=== PATIENT | female | born 1965 | race Caucasian/White ===

== ENCOUNTER 2020-01-24 20:12 | Emergency (ER) | payer OTHER, SELFPAY ==
[2020-01-24 20:13] VITALS: BP 196/130; PULSE 88; RESP 16; TEMP 36.2; O2SAT 95; BMI 39.4
[2020-01-24 20:16] VITALS: BP 192/109; PULSE 87; RESP 16; TEMP 36.2; O2SAT 95
--- NOTE | 2020-01-24 21:35 | CT_ITS ---
STUDY: CT ABDOMEN AND PELVIS WITHOUT CONTRAST REASON FOR EXAM: Female, 54 years old. Left flank pain, nausea, urinary burning RADIATION DOSAGE (If Supplied By Facility): CTDIvol = ( 20.84 ) mGy, DLP = ( 1072.41 ) mGycm TECHNIQUE: Transaxial images were obtained from the dome of the diaphragm to the symphysis pubis without oral contrast, and without intravenous contrast. Sagittal and coronal images were reconstructed. Individualized dose optimization techniques were used for this CT. COMPARISON: None. FINDINGS: The visualized lung bases are unremarkable. The visualized portions of the heart are within normal limits. Liver is severely fatty infiltrated.. Gallbladder is removed. There is no biliary dilation.. Normal spleen. Normal pancreas. Normal bilateral adrenal glands. Normal right kidney. Normal left kidney. The left ureter is minimally dilated compared to the right. There are no urinary calculi. Normal visualized stomach. Normal small intestine. Normal colon. The appendix is visualized and appears normal. Normal abdominal aorta. Normal inferior vena cava. Normal retroperitoneum. Normal urinary bladder. Normal abdominal wall. Normal osseous structures. CT/Abdomen/Pelvis without Cont IMPRESSION: 1. Mildly asymmetric and atypical appearing left ureter. Differential possibilities are recently passed urinary calculus versus ureteritis due to UTI. 2. Severe hepatic steatosis. Electronically Signed: Rogers Judge, at 22:11 EDT Tel , Service support ,
[2020-01-24 21:36] LABS: Mucous, Urine 0 SEEN /hpf (<or=2+); Squamous Epithelial Cells - UA 0 SEEN /hpf (5-10); White Blood Cells 0 SEEN /hpf (0-5)
[2020-01-24 21:47] LABS: Glucose, Dipstick Normal (Normal); Ketone-Dipstick 5 mg/dl (Negative); Leukocyte Esterase-Dipstick Negative /ul (Negative); Nitrite-Dipstick Positive (Negative); Occult Blood-Urine 50 /ul (Negative); Protein-Dipstick 30 mg/dl (Negative); Specific Gravity, Urine 1.015 (1.002-1.030); Urine Clarity Sl. Cloudy (Clear); Urine Urobilinogen 8 mg/dl (Normal)
[2020-01-24 21:49] LABS: Color, Urine SEE COMMENT BELOW (Yellow); Urine Bilirubin Dipstick 6 mg/dL (Negative)
[2020-01-24] MEDS: Ketorolac 30 MG/ML Syringe IV (21:50)
[2020-01-24 21:58] LABS: Absolute Lymphocyte Count 1.64 X10^3/uL (0.83-4.51); Absolute Neutrophil Count 7.9 X10^3/uL (2.0-7.7); Basophil# 0.06 X10^3/uL; Basophil% 0.6 % (0-1); Eosinophil# 0.03 X10^3/uL; Eosinophils% 0.3 % (0-5); Hematocrit 46.2 % (37-47); Hemoglobin 15.7 g/dL (12.0-15.0); Lymphocyte # 1.64 X10^3/ul (4.0); Lymphocyte % 16.1 % (19-41); Mean Corpuscular Hgb 31.4 pg (27.0-32.0); Mean Corpuscular Volume 92.4 fL (81-99); Monocyte# 0.47 X10^3/uL; Monocyte% 4.6 % (0-10); NRBC Flagged by Analyzer 0 % (0-5); Neutrophil # 7.93 X10^3/uL (2.7-7.7); Neutrophil % 77.8 % (47-70); Platelet Count 242 K/mm3 (150-450); RBC Distribution Width CV 12.3 % (11.6-14.6); RBC Distribution Width SD 41.6 fl (35.1-43.9); White Blood Count 10.2 K/mm3 (4.4-11.0)
[2020-01-24] MEDS: 0.9% Normal Saline 1,000 ML 250 ML IV (22:00)
[2020-01-24 22:10] LABS: Anion Gap 7 (5-15); BUN 24 mg/dL (7-18); BUN/Creat Ratio 18.2 RATIO (10-20); Calcium,Total 9.7 mg/dL (8.5-10.1); Chloride 105 mmol/L (98-107); Creatinine, Serum 1.32 mg/dL (0.55-1.02); EST Glomerular Filtration Rate 45 mL/min (>60); Est Glom Filt Rate - Afr Amer 54 mL/min (>60); Estimated Creatinine Clearance 41.24 ml/min; Glucose 157 mg/dL (74-106); Potassium 4.1 mmol/L (3.5-5.1); Sodium Level 137 mmol/L (136-145)
[2020-01-24 22:14] LABS: Bacteria 1+ /hpf (None Seen); Red Blood Cells-Urine 0-5 SEEN /hpf (0-5)
[2020-01-24 22:40] VITALS: BP 135/74; PULSE 76; RESP 16; O2SAT 96
--- NOTE | 2020-01-24 22:51 | ED.VIS.GEN ---
History of Present Illness Chief Complaint: Complaint Informant: Patient Narrative: Patient went to primary care today as she was experiencing urinary frequency. She was given Bactrim and Azo. She went home developed severe pain left flank that seem to wrap towards the left anterior lower quadrant. She had nausea about 20 minutes after taking the Bactrim. She states she could not find a position of comfort. She is never experienced this before. She states that over the past 30 minutes or so she is starting to significantly improve. Past Medical History - Allergies and Home Meds Allergies/Adverse Reactions: Allergies No Known Allergies Allergy (Verified 01/24/20 20:16) Primary Care Physician: Nilton Chaidez MD [Primary Care Provider] - As Needed Prior records reviewed: Yes Surgical History: noncontributory Lives: Spouse/ Significant Other Smoking Status: Never smoker Drugs: None Review of Systems General: Denies: Chills, Fever, Sweats Eyes: Denies: Visual changes - bilaterally, Diplopia ENT: Denies: Rhinorrhea, Sore throat Cardiovascular: Denies: Chest pain, Palpitations Respiratory: Denies: Dyspnea, Cough, Dyspnea on exertion Gastrointestinal: Reports: Abdominal pain, Nausea, Vomiting. Denies: Diarrhea, Melena, Hematochezia Genitourinary: Reports: Frequency. Denies: Dysuria, Hematuria Musculoskeletal: Reports: Back pain. Denies: Extremity Pain Skin: Denies: Rash, Wounds Neurological: Denies: Headache, Weakness, Numbness Physical Exam Vital Signs/Narrative: Vital Signs Temp Pulse Resp BP Pulse Ox 01/24/20 22:40 76 16 135/74 H 96 01/24/20 20:16 97.1 F L 87 16 192/109 H 95 01/24/20 20:13 97.1 F L 88 16 196/130 H 95 Inital Vital Signs reviewed: Yes General: Well nourished, Well developed, No Acute Distress Head: Normocephalic, Atraumatic Eyes: Perrl, EOMI ENT: Moist mucous membranes, No rhinorrhea Neck: Supple, Nontender Cardiovascular: Regular rate, Regular rhythm, No murmurs Respiratory: No distress, CTA bilaterally, Chest nontender Abdomen: Soft, Nontender, Nondistended, Normal bowel sounds Back: Nontender, Normal Inspection Extremities: Nontender, No edema Skin: Normal color, No rash Neurological: Alert, Oriented x3, Cranial nerves II-XII grossly intact, Normal Strength, Normal Sensation Psychological: Normal affect, Normal Mood Diagnostic/Tx/Re-eval Clinical Impression(s) from Imaging Studies Abdomen/Pelvis CT 01/24/20 21:35 IMPRESSION: 1. Mildly asymmetric and atypical appearing left ureter. Differential possibilities are recently passed urinary calculus versus ureteritis due to UTI. 2. Severe hepatic steatosis. Electronically Signed: Rogers Judge, at 22:11 EDT Tel , Service support , Laboratory Last Values WBC 10.2 K/mm3 (4.4-11.0) 01/24/20 21:50 RBC 5.00 M/mm3 (4.2-5.4) 01/24/20 21:50 Hgb 15.7 g/dL (12.0-15.0) H 01/24/20 21:50 Hct 46.2 % (37-47) 01/24/20 21:50 MCV 92.4 fL (81-99) 01/24/20 21:50 MCH 31.4 pg (27.0-32.0) 01/24/20 21:50 MCHC 34.0 g/dL (32-36) 01/24/20 21:50 RDW Std Deviation 41.6 fl (35.1-43.9) 01/24/20 21:50 RDW Coeff of Vera 12.3 % (11.6-14.6) 01/24/20 21:50 Plt Count 242 K/mm3 (150-450) 01/24/20 21:50 MPV 9.0 fl (6.2-12.0) 01/24/20 21:50 Immature Gran % (Auto) 0.600 % (0.0-0.9) 01/24/20 21:50 Neut % (Auto) 77.8 % (47-70) H 01/24/20 21:50 Lymph % (Auto) 16.1 % (19-41) L 01/24/20 21:50 Armstrong % (Auto) 4.6 % (0-10) 01/24/20 21:50 Eos % (Auto) 0.3 % (0-5) 01/24/20 21:50 Baso % (Auto) 0.6 % (0-1) 01/24/20 21:50 Absolute Neuts (auto) 7.9 X10^3/uL (2.0-7.7) H 01/24/20 21:50 Absolute Lymphs (auto) 1.64 X10^3/uL (0.83-4.51) 01/24/20 21:50 Nucleated RBC % 0 % (0-5) 01/24/20 21:50 Sodium 137 mmol/L (136-145) 01/24/20 21:50 Potassium 4.1 mmol/L (3.5-5.1) 01/24/20 21:50 Chloride 105 mmol/L (98-107) 01/24/20 21:50 Carbon Dioxide 25.0 mmol/L (21.0-32.0) 01/24/20 21:50 Anion Gap 7 (5-15) 01/24/20 21:50 BUN 24 mg/dL (7-18) H 01/24/20 21:50 Creatinine 1.32 mg/dL (0.55-1.02) H 01/24/20 21:50 Estim Creat Clear Calc 41.24 ml/min 01/24/20 21:50 Est GFR (MDRD) Af Amer 54 mL/min (>60) L 01/24/20 21:50 Est GFR (MDRD) Non-Af 45 mL/min (>60) L 01/24/20 21:50 BUN/Creatinine Ratio 18.2 RATIO (-20) 01/24/20 21:50 Glucose 157 mg/dL (74-106) H 01/24/20 21:50 Calcium 9.7 mg/dL (8.5-10.1) 01/24/20 21:50 Urine Color SEE COMMENT BELOW (Yellow) 01/24/20 21:30 Urine Clarity Sl. Cloudy (Clear) 01/24/20 21:30 Urine pH 6.0 (5.0 - 8.0) 01/24/20 21:30 Ur Specific [place] 1.015 (1.002-1.030) 01/24/20 21:30 Urine Protein 30 mg/dl (Negative) H 01/24/20 21:30 Urine Glucose (UA) Normal mg/dl (Normal) 01/24/20 21:30 Urine Ketones 5 mg/dl (Negative) H 01/24/20 21:30 Urine Occult Blood 50 /ul (Negative) H 01/24/20 21:30 Urine Nitrite Positive (Negative) H 01/24/20 21:30 Urine Bilirubin 6 mg/dL (Negative) H 01/24/20 21:30 Urine Urobilinogen 8 mg/dl (Normal) H 01/24/20 21:30 Ur Leukocyte Esterase Negative /ul (Negative) 01/24/20 21:30 Urine RBC 0-5 SEEN /hpf (0-5) 01/24/20 21:30 Urine WBC 0 SEEN /hpf (0-5) 01/24/20 21:30 Ur Squamous Epith Cells 0 SEEN /hpf (5-10) 01/24/20 21:30 Urine Bacteria 1+ /hpf (None Seen) 01/24/20 21:30 Urine Mucus 0 SEEN /hpf (<or=2+) 01/24/20 21:30 - Medical Decision Making Urinalysis demonstrates 1+ bacteria but no significant white or red cells. CT shows a prominent left kidney and dilated ureter down to the level of the bladder. But no obvious stone was seen. Clinically the patient presents more like ureterolithiasis that has been passed. She has been resting comfortably after dose of Toradol. Plan will be for me to write her some [place]. If this is the past on 06 suspect that she will get significantly better. As far as the 1+ bacteria no change her to Keflex as she is hesitant to take the Bactrim given the vomiting. Return if worsening or concerns. ED Disposition - Plan for ED Patient: Disposition: Home or Assisted Living Diagnosis: Left flank pain, Ureterolithiasis Instructions: ED RENAL STONE Passed Prescriptions: Cephalexin [Keflex] 500 mg PO Q6 #20 cap Prescription Printed Hydrocodone Bitart/Apap 5-325 [B[place] 5MG-325MG] 1 tab PO Q6H PRN PRN 3 Days #12 tab PRN Reason: Pain Prescription Printed Ondansetron [Zofran Odt] 4 mg PO Q6H PRN PRN #14 tab PRN Reason: Nausea Prescription Printed Referrals: Nilton Chaidez MD [Primary Care Provider] - As Needed
[2020-01-24] MEDS: Cephalexin 250 MG Capsule 500 MG PO (22:57)
== END 2020-01-24 23:03 | disposition home or self-care (01) ==
PROVIDERS: Emergency Provider Emergency Medicine; PCP Family Medicine
DX: N20.1 Calculus of ureter (principal)
CPT/HCPCS: 74176; 80048; 81001; 85025; 96361; 96374; 99282; J7030; A4216

== ENCOUNTER → 2021-02-10 15:56 | Outpatient (CLI) | payer OTHER, SELFPAY | PROVIDERS: PCP Family Medicine; Visit Provider Family Medicine | DX: Z23 Encounter for immunization (principal) | CPT/HCPCS: 0004A; 91300 ==